=== PATIENT | female | born 1990 | race Caucasian/White ===

== ENCOUNTER → 2022-06-01 07:03 | Outpatient (CLI) | payer BC, SELFPAY ==
[2022-06-01 08:24] LABS: Basophils # 0.1 K/mm3 (0-0.2); Eosinophils # 0.5 K/mm3 (0.0-0.4); Eosinophils % 4.5 % (0.1-12.0); Hematocrit 43.6 % (37.0-47.0); Hemoglobin 14.4 g/dL (12.2-16.2); Lymphocytes # 2.9 K/mm3 (0.7-4.5); Lymphocytes % 25.5 % (10-50); Mean Corpuscular Hemoglobin 27.6 pg (27.0-31.2); Mean Corpuscular Volume 83.7 fl (81-99); Mean Platelet Volume 8.9 fl (7.4-10.4); Monocytes # 0.6 K/mm3 (0.1-1.0); Monocytes % 4.8 % (1.7-9.3); Neutrophils # 7.3 K/mm3 (1.8-7.8); Neutrophils % 64.3 % (37.0-80.0); Platelet Count 358 K/mm3 (142-424); Red Blood Count 5.21 M/mm3 (4.20-5.40); Red Cell Distribution Width 13.1 % (11.5-17.5); White Blood Count 11.3 K/mm3 (4.8-10.8)
[2022-06-01 08:33] LABS: Chloride 107 mmol/L (98-107)
[2022-06-01 08:34] LABS: Potassium 4.3 mmoL/L (3.5-5.1); Sodium 141 mmol/L (136-145)
[2022-06-01 08:36] LABS: Alanine Aminotransferase 36 U/L (12-78); Alkaline Phosphatase 110 U/L (38-126); Anion Gap 11.3 mEq/L (5-15); Aspartate Amino Transferase 38 U/L (14-36); Bilirubin,Total 0.5 mg/dl (0.2-1.3); Blood Urea Nitrogen 10 mg/dl (7-17); Carbon Dioxide 27 mmol/L (22.0-30.0); Cholesterol 140 mg/dl (140-200); Estimated Glomerular Filt Rate 117 ml/min (>60); GFR (African American) 141 ML/MIN (>60)
[2022-06-01 08:37] LABS: Albumin Level 4.8 g/dl (3.5-5.0); Albumin/Globulin Ratio 1.3 (1.1-1.8); Calcium 9.4 mg/dl (8.4-10.2); Chol/HDL Ratio 3.9 (1-3.5); Globulin 3.6 g/dL (1.3-3.2); Glucose 104 mg/dl (74-100); HCG Qualitative, Serum Negative (Negative); HDL Cholesterol 36 mg/dl (40-60); Total Protein,Serum 8.4 g/dl (6.3-8.2)
[2022-06-01 08:40] LABS: Triglycerides 481 mg/dl (30-150)
[2022-06-01 08:48] LABS: Direct LDL Cholesterol 51.33 mg/dL (100-129)
[2022-06-01 09:08] LABS: Thyroid Stimulating Hormone 3.91 uIU/mL (0.465-4.68)
[2022-06-01 10:33] LABS: Hemoglobin A1C 4.9 % (4.0-6.0)
[2022-06-02 10:31] LABS: Testosterone,Total 19 ng/dL (8-60)
[2022-06-05 22:30] LABS: Estrogen 68 pg/mL (.)
== END ==
PROVIDERS: PCP Internal Medicine Adolescent Medicine; Visit Provider Internal Medicine Adolescent Medicine
DX: Z00.00 Encounter for general adult medical examination without abnormal findings (principal); R10.32 Left lower quadrant pain; N92.6 Irregular menstruation, unspecified
CPT/HCPCS: 36415; 80053; 80061; 82672; 83036; 84403; 84443; 84703; 85025

== ENCOUNTER → 2022-06-23 12:42 | Outpatient (CLI) | payer BC, SELFPAY ==
--- NOTE | 2022-06-23 12:42 | US_ITS ---
FINAL REPORT CLINICAL HISTORY: pelvic pain FINDINGS: Transvaginal sonographic images of the pelvis were obtained. The uterus measures 7.3 x 4.6 x 3.2 cm. The endometrium measures 7 mm, which is within normal limits. There is a 7 mm uterine fibroid. There is a 2nd uterine fibroid measuring 6 mm. The right ovary measures 4.9 cm in length and left ovary measures 2.5 cm in length. Normal blood flow seen to the ovaries. Small follicles are present in the left ovary. There is a 4.1 cm right ovarian cyst. There is no evidence of free fluid. IMPRESSION: Two uterine fibroids. Right ovarian cyst. Reviewed, Interpreted and Dictated by Andriy Duran III, MD Transcribed by Ilda Costello Authenticated and [facility]
== END ==
PROVIDERS: PCP Internal Medicine Adolescent Medicine; Visit Provider Obstetrics & Gynecology
DX: R10.2 Pelvic and perineal pain (principal); G89.29 Other chronic pain
CPT/HCPCS: 76830

== ENCOUNTER 2022-10-29 11:56 | Day surgery (SDC) | payer BC, SELFPAY ==
[2022-10-23 13:47] VITALS: BMI 26.9
[2022-10-29] VITALS (7 sets, daily range): BP systolic 92–145; BP diastolic 60–82; PULSE 79–89; RESP 16–18; TEMP 36.1–36.9; O2SAT 94–100
[2022-10-29 12:14] LABS: Urine Pregnancy, HCG Qual. Negative (Negative)
--- NOTE | 2022-10-29 12:48 | P.PNANES_ITS ---
[facility] Disclaimer: The information contained in this section may have been updated after the patient was seen, as this information can be updated by other users. Medical History Chronic pelvic pain in female Dysmenorrhea Endometriosis Irregular menstrual bleeding PCOS (polycystic ovarian syndrome) Surgical History History of placement of ear tubes [place] teeth removed Family History Other Asthma FHx: mental illness Stroke Social History Smoking Status: Never smoker alcohol intake: current substance use type: marijuana current occupational status: employed Travel in the last 8 weeks: None household members: none housing: apartment lives independently: Yes marital status: single education level: college service: No caffeine: Yes do you feel safe at home: Yes victim of physical abuse: No victim of emotional abuse: No victim of sexual abuse: No would you like helpful sources: No [facility] Anesthesia Checklist Patient Identification Patient Identification: Arm Band and Verbal (Name & ) Structural Data Admitted From: Home Planned Operative Procedure/s: Colonoscopy Consent for Planned Operative Procedure(s) Verified: Yes NPO Status Verified Time NPO: 00:00 Chart Verification Results Verified: HCG Airway Assessment C-Spine Mobility Assessed: Yes TMJ Mobility Assessed: Yes Dentition: Good Dentition Neurological Assessment Level of Consciousness: Awake Hx Seizures: No Numbness or tingling in extremities: No Anesthesia Plan Anesthesia Risk discussed: Yes Anesthesia Plan: Verified ASA Class: II Anesthesia Type: MAC
--- NOTE | 2022-10-29 13:10 | HMH.SCOPE ---
Procedure: Date: 10/29/22 Patient Date of :: 1990 Procedure Performed:: Colonoscopy and biopsies Indications:: Chronic diarrhea Performing Provider:: Dennis Soler MD Referring Provider:: Gregory Duong MD Sedation:: Propofol Procedure:: After placing the patient in the left lateral decubitus position, the colonoscopy was gently inserted into the rectum and under direct visualization advanced to the cecum which was identified by transillumination in the right lower quadrant, identification of the ileocecal valve, appendiceal orifice, and cecal strap. Color, texture, mucosa, and anatomy of the colon were carefully examined with the scope. Findings:: Anal canal: normal Rectum: normal Sigmoid colon: normal without polyps or inflammatory changes, biopsied Descending colon: normal without polyps or inflammatory changes, biopsied Splenic flexure: normal Transverse colon: normal without polyps or inflammatory changes, biopsied Hepatic flexure: normal Ascending colon: normal without polyps or inflammatory changes, biopsied Cecum: normal Terminal ileum: not visualized Impression: Normal colonoscopy Symptoms suggestive of IBS-D Specimens:: Random colon Recommendations:: Follow up examination in about TEN years or so, sooner if clinically indicated. Follow up with GI Clinic for management of IBS-D Complications:: none Estimated blood obtained (mL): 0 Colonoscopy Component Colonoscopy Component Was a colonoscopy performed during today's procedure?: Yes Recommended follow up colonoscopy of at least 10 years?: Yes
== END 2022-10-29 14:03 | disposition home or self-care (01) ==
PROVIDERS: PCP Internal Medicine Adolescent Medicine; Visit Provider Internal Medicine Gastroenterology
PROC: 0DJD8ZZ Inspection of Lower Intestinal Tract, Via Natural or Artificial Opening Endoscopic (ICD-10-PCS; CPT 45378; principal; 2022-10-29 13:00)
DX: K52.9 Noninfective gastroenteritis and colitis, unspecified (principal)
CPT/HCPCS: 45378; 81025

== ENCOUNTER → 2022-12-30 01:10 | Outpatient (CLI) | payer BC, SELFPAY ==
[2022-12-30 20:02] LABS: Basophils % 0.3 % (0.1-2.0); Eosinophils # 0.4 K/mm3 (0.0-0.4); Eosinophils % 3.1 % (0.1-12.0); Lymphocytes # 1.8 K/mm3 (0.7-4.5); Lymphocytes % 15.8 % (10-50); Mean Corpuscular Hemoglobin 26.8 pg (27.0-31.2); Mean Corpuscular Volume 86.4 fl (81-99); Mean Platelet Volume 9.3 fl (7.4-10.4); Monocytes # 0.3 K/mm3 (0.1-1.0); Monocytes % 2.7 % (1.7-9.3); Neutrophils # 8.8 K/mm3 (1.8-7.8); Neutrophils % 78.1 % (37.0-80.0); Platelet Count 428 K/mm3 (142-424); Red Blood Count 4.86 M/mm3 (4.20-5.40); Red Cell Distribution Width 13.6 % (11.5-17.5); White Blood Count 11.3 K/mm3 (4.8-10.8)
[2022-12-30 20:06] LABS: Alanine Aminotransferase 13 U/L (12-78); Albumin Level 4.1 g/dl (3.5-5.0); Albumin/Globulin Ratio 1.1 (1.1-1.8); Alkaline Phosphatase 90 U/L (38-126); Amylase 60 U/L (30-110); Anion Gap 15.3 mEq/L (5-15); Aspartate Amino Transferase 20 U/L (14-36); Bilirubin,Total 0.2 mg/dl (0.2-1.3); Blood Urea Nitrogen 9 mg/dl (7-17); Calcium 9.4 mg/dl (8.4-10.2); Carbon Dioxide 23 mmol/L (22.0-30.0); Chloride 106 mmol/L (98-107); Chol/HDL Ratio 2.5 (1-3.5); Cholesterol 160 mg/dl (140-200); Estimated Glomerular Filt Rate 98 ml/min (>60); GFR (African American) 118 ML/MIN (>60); Globulin 3.7 g/dL (1.3-3.2); Glucose 87 mg/dl (74-100); HDL Cholesterol 65 mg/dl (40-60); Lipase 100 U/L (23-300); Potassium 5.3 mmoL/L (3.5-5.1); Sodium 139 mmol/L (136-145); Total Protein,Serum 7.8 g/dl (6.3-8.2)
[2022-12-30 20:14] LABS: Triglycerides 438 mg/dl (30-150)
[2022-12-30 20:26] LABS: 25-OH Vitamin D, Total 21.3 ng/mL (30-100)
[2022-12-30 20:53] LABS: Erythrocyte Sedimentation Rate 39 mm/hr (0-20)
[2023-01-01 11:19] LABS: Thyroid Stimulating Hormone 2.06 uIU/mL (0.465-4.68)
[2023-01-01 14:20] LABS: Anti-Centromere B Antibodies <0.2 AI (0.0-0.9); Anti-DNA (DS) Ab Qn <1 IU/mL (0-9); Anti-Jo-1 <0.2 AI (0.0-0.9); Anti-Smith Antibody <0.2 AI (0.0-0.9); Antichromatin Antibodies <0.2 AI (0.0-0.9); Antiscleroderma-70 Antibodies <0.2 AI (0.0-0.9); RNP Antibodies <0.2 AI (0.0-0.9); Sjogren's Anti-SS-A <0.2 AI (0.0-0.9); Sjogren's Anti-SS-B <0.2 AI (0.0-0.9); Tissue Transglutaminase IgA Ab <2 U/mL (0-3); Tissue Transglutaminase IgG Ab <2 U/mL (0-5)
[2023-01-03 10:53] LABS: F026-IgE Pork < 0.10 kU/L (<0.10); F027-IgE Beef < 0.10 kU/L (<0.10); F088-IgE Lamb < 0.10 kU/L (<0.10); Immunoglobulin E, Total 142 IU/mL (6-495); O215-IgE Alpha-Gal < 0.10 kU/L (<0.10)
[2023-01-03 10:54] LABS: F001-IgE Egg White <0.10; F002-IgE Milk <0.10
[2023-01-03 10:55] LABS: F003-IgE Codfish <0.10; F004-IgE Wheat <0.10; F013-IgE Peanut <0.10; F014-IgE Soybean <0.10
[2023-01-03 10:56] LABS: F024-IgE Shrimp 0.23; F256-IgE Walnut <0.10; F338-IgE Scallop <0.10
[2023-01-03 11:33] LABS: F010-IgE Sesame Seed <0.10 kU/L (Class 0)
== END ==
PROVIDERS: PCP Physician Assistant; Visit Provider Physician Assistant
DX: R06.00 Dyspnea, unspecified (principal); R10.9 Unspecified abdominal pain; R00.2 Palpitations; E55.9 Vitamin D deficiency, unspecified; Z79.899 Other long term (current) drug therapy
CPT/HCPCS: 80053; 80061; 82150; 82306; 83516; 83690; 84443; 85025; 85651; 86003; 86008; 86140; 86225; 86235

== ENCOUNTER → 2023-01-04 08:26 | Outpatient (CLI) | payer BC, SELFPAY | PROVIDERS: PCP Physician Assistant; Visit Provider Physician Assistant | DX: R06.00 Dyspnea, unspecified (principal); R00.2 Palpitations | CPT/HCPCS: 93225 ==

== ENCOUNTER → 2023-01-25 13:33 | Outpatient (CLI) | payer BC, SELFPAY ==
--- NOTE | 2023-01-25 13:34 | CA_ITS ---
APPROVED REPORT EXAM: Comprehensive 2D, Doppler, and color-flow Echocardiogram Programmer Business: Shaye Rawls RDCS Ht: 5 ft 6 in Wt: 167lbs BSA: 1.85 BP: 160/98 mmHg Indications: SOA,HTN 2D Dimensions LVOT 1.83 cm (M/F) 1.5-2.5 M-Mode Dimensions RVDd 0.96 cm (0.9-2.6) LA Diam 3.03 cm (1.9-4.0) LVDd 5.64 cm (3.5-5.7) Ao Diam 2.86 cm (2.0-3.7) LVDs 4.16 cm (3.5-5.7) IVSd 0.49 cm (0.6-1.1) PWd 0.61 cm (0.6-1.1) EF (Teich) 50.80% FS 26.20% EDV (Teich) 156.20 mL TAPSE 1.72 (<1.7) ESV (Teich) 76.80 mL LV Diastology E Decel Time 160.00 (160-240 msec) E/A Ratio 1.5 MED E' 10.10 (< 7 cm/sec) E'/MED E' Ratio 8.63 (>14) LAT E' 12.60 (<10 cm/sec) E/LAT E' Ratio 6.92 (>14) Mitral Valve MV E Max Obed. 87.00 (40-130 cm/s) MV A Velocity 57.00 (40-130 cm/s) E/A Ratio 1.53 MV Decel. Time 160.00 (160-240 ms) MV PHT 47.00 ms Left Ventricle The left ventricle is normal size. The left ventricular systolic function is normal. The left ventricular ejection fraction is within the normal range. There is normal left ventricular wall thickness. There is normal LV segmental wall motion. The left ventricular diastolic function is normal. LVEF is 55%. Right Ventricle The right ventricle is normal size. The right ventricular systolic function is normal. Atria The left atrium size is normal. The right atrium size is normal. There is no Doppler evidence of interatrial shunt. Aortic Valve The aortic valve opens well. There is no aortic valvular stenosis. No aortic regurgitation is present. Mitral Valve The mitral valve is normal in structure. There is no mitral valve regurgitation noted. Tricuspid Valve The tricuspid valve leaflets are thin and pliable. Trace tricuspid regurgitation. There is insufficient TR jet to estimate RVSP. Pulmonic Valve The pulmonary valve is normal in structure. Trace pulmonic regurgitation. Great Vessels The aortic root is normal in size. The ascending aorta is normal in size. IVC is normal in size and collapses >50% with inspiration. Pericardium There is no pericardial effusion. Other Information Study Quality: Adequate Conclusion Normal biventricular systolic function. No significant valvular stenosis or regurgitation. Electronically signed by : Dominique Mahoney MD 01/26/2023 20:46:19
== END ==
PROVIDERS: PCP Physician Assistant; Visit Provider Physician Assistant
DX: R06.00 Dyspnea, unspecified (principal)
CPT/HCPCS: 93306

== ENCOUNTER 2023-05-24 22:00 | Outpatient (CLI) | payer BC, SELFPAY ==
[2023-05-24 18:15] LABS: Basophils % 0.2 % (0.1-2.0); Eosinophils # 0.2 K/mm3 (0.0-0.4); Eosinophils % 2.5 % (0.1-12.0); Hemoglobin 13.7 g/dL (12.2-16.2); Lymphocytes # 1.8 K/mm3 (0.7-4.5); Lymphocytes % 18.8 % (10-50); Mean Corpuscular HGB Conc 34.3 g/dL (31.8-35.4); Mean Corpuscular Hemoglobin 28.3 pg (27.0-31.2); Mean Corpuscular Volume 82.5 fl (81-99); Monocytes # 0.4 K/mm3 (0.1-1.0); Monocytes % 4.4 % (1.7-9.3); Neutrophils # 7.1 K/mm3 (1.8-7.8); Neutrophils % 74.1 % (37.0-80.0); Platelet Count 489 K/mm3 (142-424); Red Blood Count 4.85 M/mm3 (4.20-5.40); Red Cell Distribution Width 13.6 % (11.5-17.5); White Blood Count 9.5 K/mm3 (4.8-10.8)
[2023-05-24 18:23] LABS: Alanine Aminotransferase 13 U/L (12-78); Albumin Level 4.5 g/dl (3.5-5.0); Albumin/Globulin Ratio 1.3 (1.1-1.8); Alkaline Phosphatase 96 U/L (38-126); Anion Gap 14.8 mEq/L (5-15); Aspartate Amino Transferase 24 U/L (14-36); Blood Urea Nitrogen 9 mg/dl (7-17); Calcium 9.8 mg/dl (8.4-10.2); Carbon Dioxide 24 mmol/L (22.0-30.0); Chloride 105 mmol/L (98-107); Creatine Kinase 22 U/L (30-135); Estimated Glomerular Filt Rate 83 ml/min (>60); GFR (African American) 101 ML/MIN (>60); Globulin 3.4 g/dL (1.3-3.2); Glucose 102 mg/dl (74-100); Potassium 4.8 mmoL/L (3.5-5.1); Sodium 139 mmol/L (136-145); Total Protein,Serum 7.9 g/dl (6.3-8.2)
[2023-05-24 18:28] LABS: C-Reactive Protein 28.8 mg/L (0-4)
[2023-05-24 18:47] LABS: Erythrocyte Sedimentation Rate 12 mm/hr (0-20)
[2023-05-24 18:52] LABS: Thyroid Stimulating Hormone 2.47 uIU/mL (0.465-4.68)
[2023-05-24 19:11] LABS: Vitamin B12 206 pg/mL (239-931)
[2023-05-24 20:17] LABS: 25-OH Vitamin D, Total 33.3 ng/mL (30-100)
[2023-05-26 13:14] LABS: Anti-Centromere B Antibodies <0.2 AI (0.0-0.9); Anti-Cyclic Citrullinated Pept 6 units (0-19); Anti-DNA (DS) Ab Qn <1 IU/mL (0-9); Anti-Jo-1 <0.2 AI (0.0-0.9); Anti-Smith Antibody <0.2 AI (0.0-0.9); Antichromatin Antibodies <0.2 AI (0.0-0.9); Antiscleroderma-70 Antibodies <0.2 AI (0.0-0.9); RA Latex Turbid. <10.0 IU/mL (<14.0); RNP Antibodies <0.2 AI (0.0-0.9); Sjogren's Anti-SS-A <0.2 AI (0.0-0.9); Sjogren's Anti-SS-B <0.2 AI (0.0-0.9)
== END 2023-05-24 23:59 ==
LOC: LAB.DROPOF 22:00
PROVIDERS: PCP Physician Assistant; Visit Provider Physician Assistant
DX: R10.9 Unspecified abdominal pain (principal); R25.1 Tremor, unspecified; R29.6 Repeated falls
CPT/HCPCS: 80053; 82306; 82550; 82607; 84443; 85025; 85651; 86140; 86200; 86225; 86235; 86431

== ENCOUNTER 2023-05-31 16:56 | Outpatient (CLI) | payer BC, SELFPAY ==
[2023-06-01 07:41] LABS: RA Latex Turbid. <10.0 IU/mL (<14.0)
[2023-06-02 17:00] LABS: Peripheral Smear Review Scanned Result
[2023-06-03 22:34] LABS: Calprotectin, Fecal <5 ug/g (0-120)
[2023-06-05 00:08] LABS: Pancreatic Elastase, Fecal 191 (>200)
== END 2023-05-31 23:59 ==
LOC: LAB 16:56
PROVIDERS: Nurse Practitioner; PCP Physician Assistant; Visit Provider Physician Assistant
DX: M62.89 Other specified disorders of muscle (principal); R10.9 Unspecified abdominal pain; R25.1 Tremor, unspecified; R29.6 Repeated falls; R19.5 Other fecal abnormalities; K58.9 Irritable bowel syndrome, unspecified; R79.89 Other specified abnormal findings of blood chemistry
CPT/HCPCS: 36415; 82085; 82656; 83993; 86431

== ENCOUNTER 2023-07-19 07:19 | Outpatient (CLI) | payer BC, SELFPAY ==
--- NOTE | 2023-07-19 07:19 | CT_ITS ---
FINAL REPORT TECHNIQUE: Axial images through the abdomen and pelvis were performed without contrast. This study was performed with techniques to keep radiation doses as low as reasonably achievable, (ALARA). Individualized dose reduction techniques using automated exposure control or adjustment of mA and/or kV according to the patient's size were employed. CLINICAL HISTORY: left flank pain FINDINGS: ABDOMEN: There is mild atelectasis in the right lung base. There are several less than 1 cm low-attenuation foci in the liver which cannot be accurately characterized but may represent cysts. The spleen is normal. No adrenal mass is identified. The aorta is normal in caliber. There is no significant free fluid or adenopathy. There is no nephrolithiasis. There is no hydronephrosis. PELVIS: The appendix is normal. There is a 22 mm right ovarian cyst. The urinary bladder is unremarkable. There is no significant free fluid or adenopathy. IMPRESSION: No hydronephrosis or nephrolithiasis. 22 mm right ovarian cyst. Reviewed, Interpreted and Dictated by Andriy Duran III, MD Transcribed by Suni Burgos Authenticated and [facility]
== END 2023-07-19 23:59 ==
LOC: RAD 07:19
PROVIDERS: PCP Physician Assistant; Visit Provider Physician Assistant
DX: R10.9 Unspecified abdominal pain (principal); M62.89 Other specified disorders of muscle; R25.1 Tremor, unspecified; R29.6 Repeated falls
CPT/HCPCS: 74176